=== PATIENT | female | born 1995 | race American Indian/Alaskan Native ===

== ENCOUNTER 2019-02-26 16:17 | Emergency (ER) | payer MEDICAID, OTHER ==
--- NOTE | 2019-02-26 16:24 | Emergency Department Report ---
Stated Complaint: SICK TO STOMACH Time Seen by Provider: 02/26/19 16:22 - HPI History of Present Illness: pt presents with diarrhea that began a week ago has cramping abd discomfort no N/V no fever no recent abx, no recent travel, no water from different source, no camping + sick contact [facility] January 25 no PMHx no daily meds allergy to tomato non smoker occ drinker no drug use MSE screening note: Focused history and physical exam performed. Due to findings the following was ordered: labs, UA, urine preg ED Disposition for MSE Condition: Stable
[2019-02-26 16:43] LABS: Basophils % (Auto) 0.4 % (0.0-1.8); Eosinophils # (Auto) 0.1 K/mm3 (0.0-0.4); Eosinophils % (Auto) 0.8 % (0.0-4.3); Hematocrit 37.4 % (30.3-42.9); Hemoglobin 12.8 gm/dl (10.1-14.3); Lymphocytes # (Auto) 2.7 K/mm3 (1.2-5.4); Lymphocytes % (Auto) 33.7 % (13.4-35.0); Mean Corpuscular HGB Conc 34 % (30-34); Mean Corpuscular Volume 93 fl (79-97); Monocytes # (Auto) 0.7 K/mm3 (0.0-0.8); Monocytes % (Auto) 8.1 % (0.0-7.3); Platelet Count 252 K/mm3 (140-440); Red Blood Count 4.02 M/mm3 (3.65-5.03); Red Cell Distribution Width 13.5 % (13.2-15.2)
[2019-02-26 16:57] LABS: Bacteria,Urine 1+ /HPF (Negative); Bilirubin,Urine NEG (Negative); Blood,Urine SM (Negative); Color,Urine Yellow (Yellow); Protein,Urine <15 mg/dL mg/dL (Negative); Urobilinogen,Urine < 2.0 mg/dL (<2.0)
[2019-02-26 17:04] LABS: HCG Qualitative,Urine Negative (Negative)
[2019-02-26 17:07] LABS: Alanine Aminotransferase 9 units/L (7-56); Albumin 4.5 g/dL (3.9-5); BUN/Creatinine Ratio 16; Blood Urea Nitrogen 11 mg/dL (7-17); Calcium 9.2 mg/dL (8.4-10.2); Hemolysis Index 3
[2019-02-26] MEDS ORDERED: ZOFRAN ODT PO ONE (18:43)
--- NOTE | 2019-02-26 18:44 | Emergency Department Report ---
ED Female HPI - General Chief complaint: Nausea/Vomiting/Diarrhea Stated complaint: SICK TO STOMACH Time Seen by Provider: 02/26/19 16:22 Source: patient Mode of arrival: Ambulatory Limitations: No Limitations - History of Present Illness Initial comments: This is 24-year-old female here reports that she is having urinary frequency nausea without any vomiting and diarrhea and abdominal pain for a week. She said she is having pain to her pelvic area 2/10 cramping on and off. No medication taken. She reports no urinary burning. No alleviating or exacerbating factors for pain. Pain is intermittent. She says she feels tired. Denies any fever or chills. Denies any back pain or chest pain. Denies any shortness of breath. Patient denies any medical problems. MD Complaint: other (urinary frequency and abdominal pain with nausea without vomiting and diarrhea on and off yesterday.) Onset/Timin -: week(s) Location: suprapubic Radiation: non-radiating Severity: mild Severity scale (0 -10): 2 Quality: cramping Consistency: intermittent Improves with: none Worsens with: none Are you Now?: No Associated Symptoms: abdominal pain, nausea/vomiting, other (urinary frequency, fatigue and episode of diarrhea yesterday). denies: vaginal discharge, vaginal bleeding, fever/chills, headaches, loss of appetite, dysuria, hematuria, rash, seizure, shortness of breath, syncope - Related Data Sexually active: Yes Previous Rx's Medication Instructions Recorded Last Taken Type Docusate Sodium [Colace] 100 mg PO BID PRN #60 capsule 08/08/16 Unknown Rx Ferrous Sulfate [Feosol 325 MG tab] 325 mg PO BID #60 tablet 08/08/16 Unknown Rx HYDROcodone/APAP 5-325 [[place] 1 each PO Q6HR PRN #30 tablet 08/08/16 Unknown Rx 5/325] Ibuprofen [Motrin] 800 mg PO Q8HR PRN #30 tablet 08/08/16 Unknown Rx Ondansetron [Zofran ODT TAB] 8 mg PO Q8HR PRN #12 tab.rapdis 02/26/19 Unknown Rx cephALEXin [Keflex] 500 mg PO Q12HR 7 Days #14 cap 02/26/19 Unknown Rx Allergies Allergy/AdvReac Type Severity Reaction Status Date / Time tomato Allergy Nausea Verified 02/26/19 16:28 ED Review of Systems ROS: Stated complaint: SICK TO STOMACH Other details as noted in HPI Constitutional: other (fatigue). denies: chills, fever ENT: denies: throat pain, dental pain, congestion Respiratory: denies: cough, shortness of breath, wheezing Cardiovascular: denies: chest pain, palpitations, edema, syncope Gastrointestinal: abdominal pain, nausea, diarrhea. denies: vomiting, constipation, hematemesis, melena, hematochezia Genitourinary: frequency. denies: urgency, dysuria, hematuria, discharge, abnormal menses, dyspareunia Skin: denies: rash Neurological: denies: headache, numbness, paresthesias, abnormal gait, vertigo ED Past Medical Hx - Past Medical History Previous Medical History?: Yes Hx Hypertension: No Hx Congestive Heart Failure: No Hx Diabetes: No Hx Deep Vein Thrombosis: No Hx Renal Disease: No Hx Sickle Cell Disease: No Hx Seizures: No Hx Asthma: No Hx COPD: No Hx HIV: No Additional medical history: Vaginal delivery x 2 - Surgical History Past Surgical History?: No - Family History Family history: hypertension - Social History Smoking Status: Never Smoker Substance Use Type: Alcohol - Medications Home Medications: Home Medications Medication Instructions Recorded Confirmed Last Taken Type Docusate Sodium [Colace] 100 mg PO BID PRN #60 capsule 08/08/16 Unknown Rx Ferrous Sulfate [Feosol 325 MG tab] 325 mg PO BID #60 tablet 08/08/16 Unknown Rx HYDROcodone/APAP 5-325 [[place] 1 each PO Q6HR PRN #30 tablet 08/08/16 Unknown Rx 5/325] Ibuprofen [Motrin] 800 mg PO Q8HR PRN #30 tablet 08/08/16 Unknown Rx Ondansetron [Zofran ODT TAB] 8 mg PO Q8HR PRN #12 tab.rapdis 02/26/19 Unknown Rx cephALEXin [Keflex] 500 mg PO Q12HR 7 Days #14 cap 02/26/19 Unknown Rx ED Physical Exam - General Limitations: No Limitations General appearance: alert, in no apparent distress - Head Head exam: Present: atraumatic, normocephalic, normal inspection - Eye Eye exam: Present: normal appearance, PERRL, EOMI Pupils: Present: normal accommodation - ENT ENT exam: Present: normal exam, normal orophraynx, mucous membranes moist, TM's normal bilaterally, normal external ear exam - Neck Neck exam: Present: normal inspection, full ROM. Absent: tenderness, lymphadenopathy - Respiratory Respiratory exam: Present: normal lung sounds bilaterally. Absent: respiratory distress, chest wall tenderness - Cardiovascular Cardiovascular Exam: Present: regular rate, normal rhythm, normal heart sounds - GI/Abdominal GI/Abdominal exam: Present: soft, normal bowel sounds. Absent: distended, tenderness, guarding, rebound, rigid, organomegaly, mass, bruit, pulsatile mass - Extremities Exam Extremities exam: Present: normal inspection, full ROM, normal capillary refill, other (No cce. + 2 pulses in all extremities, no neurovascular compromise). Absent: tenderness, pedal edema, joint swelling, calf tenderness - Back Exam Back exam: Present: normal inspection, full ROM, other (ambulates without any difficulties). Absent: tenderness, CVA tenderness (R), CVA tenderness (L), muscle spasm, paraspinal tenderness, vertebral tenderness, rash noted - Neurological Exam Neurological exam: Present: alert, oriented X3, normal gait, other (no focal neurological deficits) - Psychiatric Psychiatric exam: Present: normal affect, normal mood - Skin Skin exam: Present: warm, dry, intact, normal color. Absent: rash ED Course Vital Signs 02/26/19 16:21 Temperature 97.8 F Pulse Rate 87 Respiratory 18 Rate Blood Pressure 125/84 O2 Sat by Pulse 100 Oximetry - Reevaluation(s) Reevaluation #1: 02/26/19 20:33 Patient given Zofran 8 mg ODT in the emergency room which relieved her pain. She says she is feeling a lot better. To Have Urinary Tract Infection and I Explained Diagnosis to Her. ED Medical Decision Making - Lab Data Result diagrams: 02/26/19 16:31 02/26/19 16:31 Lab Results 02/26/19 02/26/19 02/26/19 Range/Units 16:31 16:31 Unknown WBC 8.1 (4.5-11.0) K/mm3 RBC 4.02 (3.65-5.03) M/mm3 Hgb 12.8 (10.1-14.3) gm/dl Hct 37.4 (30.3-42.9) % MCV 93 (79-97) fl MCH 32 (28-32) pg MCHC 34 (30-34) % RDW 13.5 (13.2-15.2) % Plt Count 252 (140-440) K/mm3 Lymph % (Auto) 33.7 (13.4-35.0) % Barry % (Auto) 8.1 H (0.0-7.3) % Eos % (Auto) 0.8 (0.0-4.3) % Baso % (Auto) 0.4 (0.0-1.8) % Lymph # 2.7 (1.2-5.4) K/mm3 Barry # 0.7 (0.0-0.8) K/mm3 Eos # 0.1 (0.0-0.4) K/mm3 Baso # 0.0 (0.0-0.1) K/mm3 Seg Neutrophils % 57.0 (40.0-70.0) % Seg Neutrophils # 4.6 (1.8-7.7) K/mm3 Sodium 141 (137-145) mmol/L Potassium 3.6 (3.6-5.0) mmol/L Chloride 101.9 (98-107) mmol/L Carbon Dioxide 26 (22-30) mmol/L Anion Gap 17 mmol/L BUN 11 (7-17) mg/dL Creatinine 0.7 (0.7-1.2) mg/dL Estimated GFR > 60 ml/min BUN/Creatinine Ratio 16 % Glucose 101 H (65-100) mg/dL Calcium 9.2 (8.4-10.2) mg/dL Total Bilirubin 1.70 H (0.1-1.2) mg/dL AST 15 (5-40) units/L ALT 9 (7-56) units/L Alkaline Phosphatase 50 (35-129) units/L Total Protein 7.7 (6.3-8.2) g/dL Albumin 4.5 (3.9-5) g/dL Albumin/Globulin Ratio 1.4 % Lipase 33 (13-60) units/L Urine Color Yellow (Yellow) Urine Turbidity Slightly-cloudy (Clear) Urine pH 6.0 (5.0-7.0) Ur Specific [place] 1.006 (1.003-1.030) Urine Protein <15 mg/dl (Negative) mg/dL Urine Glucose (UA) Neg (Negative) mg/dL Urine Ketones Neg (Negative) mg/dL Urine Blood Sm (Negative) Urine Nitrite Neg (Negative) Urine Bilirubin Neg (Negative) Urine Urobilinogen < 2.0 (<2.0) mg/dL Ur Leukocyte Esterase Lg (Negative) Urine WBC (Auto) 11.0 H (0.0-6.0) /HPF Urine RBC (Auto) 1.0 (0.0-6.0) /HPF U Epithel Cells (Auto) 2.0 (0-13.0) /HPF Urine Bacteria (Auto) 1+ (Negative) /HPF Urine HCG, Qual Negative (Negative) Urine culture sent - Medical Decision Making This is a 24-year-old female here reports that she is having nausea on and off over the last week, urinary frequency without any burning, pelvic pain and episodic diarrhea. Patient able to tolerate water in them and which she brought to the hospital with her. She is here to be seen. Labs: CBC and CMP is stable. Urinalysis positive for urinary tract infection and urine culture sent and pending. Urine test is negative Patient able to tolerate oral liquids emergency room without any vomiting but she was given Zofran 8 mg by mouth for nausea which relieved her nausea. Assessment/plan 1: Acute cystitis with hematuria-urine positive for UTI and urine culture sent. test is negative 2: Lower abdominal pain at pelvic-nontender to palpation and exam 3 nausea without vomiting-resolved with Zofran 4 episodic diarrhea-resolved 5 fatigue-labwork is stable I discussed the patient and her diagnosis and treatment plan and she voiced understanding. Nausea is relieved with Zofran. I discussed with her that she needs to take antibiotic as prescribed and follow-up with her primary care physician in 2-3 days and if she does not have a primary care physician to follow up at [facility]. I also discussed with her first symptoms worsen to return to the emergency room and she voiced understanding. Patient nausea and pain is relieved that she had no episode of vomiting or diarrhea and emergency room. I discussed with her her labs and urinalysis and she voiced understanding. Patient discharged home in stable condition with prescription for Zofran and Keflex. Vital signs are stable she is afebrile - Differential Diagnosis pyelonephritis, colitis, kidney stones, UTI, gastroenteritis Critical care attestation.: If time is entered above; I have spent that time in minutes in the direct care of this critically ill patient, excluding procedure time. ED Disposition Clinical Impression: Acute cystitis with hematuria, Nausea alone Abdominal pain Qualifiers: Abdominal location: lower abdomen, unspecified Qualified Code(s): R10.30 - L ower abdominal pain, unspecified Fatigue Qualifiers: Fatigue type: unspecified Qualified Code(s): R53.83 - Other fatigue Disposition: TO HOME OR SELFCARE Is pt being admited?: No Does the pt Need Aspirin: No Condition: Stable Instructions: Abdominal Pain (ED), Acute Nausea and Vomiting (ED), Fatigue (ED), Urinary Tract Infection in Women (ED) Additional Instructions: Please follow-up with your primary care physician or [facility] in 2-3 days Take medication for nausea and antibiotic for urinary tract infection as prescribed . If his condition worsens, please return to the emergency room CLAUDETTE Increase her fluid intake to 2-3 L of water daily Prescriptions: cephALEXin [Keflex] 500 mg PO Q12HR 7 Days #14 cap Ondansetron [Zofran ODT TAB] 8 mg PO Q8HR PRN #12 tab.rapdis PRN Reason: Nausea And Vomiting Referrals: ENRRIQUE ANTONY MD [Primary Care Provider] - 2-3 Days Forms: Work/School Release Form(ED)
[2019-02-26 20:54] VITALS: BP 111/72
== END 2019-02-26 20:54 | disposition home or self-care (01) ==
LOC: ED 16:17
DX: N30.01 Acute cystitis with hematuria (principal); R53.83 Other fatigue
CPT/HCPCS: 36415; 80053; 81001; 81025; 83690; 85025; 87086; 99283; Q0162